=== PATIENT | male | born 1975 | race Two or more races ===

== ENCOUNTER 2020-11-26 11:09 | Emergency (ER) | payer BC, OTHER ==
[~2020-11-26] VITALS: Ht 162.6 cm; Wt 86.2 kg
[2020-11-26 11:30] VITALS: BP 128/80
[2020-11-26] MEDS ORDERED: cefTRIAXone SOD 1,000 MG VL IM ONE (13:00)
== END 2020-11-26 14:12 | disposition home or self-care (01) ==
LOC: ER 11:09
DX: U07.1 COVID-19 (principal); J12.82 Pneumonia due to coronavirus disease 2019; J03.90 Acute tonsillitis, unspecified
CPT/HCPCS: 71045; 96372; 99283; J0696